=== PATIENT | male | born 1985 | race Caucasian/White ===

== ENCOUNTER 2017-10-20 13:34 | Emergency (ER) | payer SELFPAY ==
[2017-10-20 13:44] VITALS: BP 156/109
--- NOTE | 2017-10-20 14:27 | UC ---
Ginette Summers Simon, scribed for Kelvin Salazar MD on 10/20/17 at 1412 . Skin Complaint HPI - HPI Summary HPI Summary: This patient is a 32 year old M presenting [place] [facility] [place] a chief complaint of itchy rash on fingers and toes for past couple months. He endorses symptoms have worsened in past couple of days. - History of Current Complaint Chief Complaint: UCSkin Time Seen by Provider: 10/20/17 14:03 Stated Complaint: RASH Hx Obtained From: Patient Onset/Duration: Gradual Onset, Lasting Weeks, Still Present, Worse Since - 2 or 3 days ago Skin Exposure Onset/Duration: Weeks Ago Timing: Constant Onset Severity: Mild Current Severity: Mild Pain Intensity: 1 Pain Scale Used: 0-10 Numeric Location: Hand (Right), Hand (Left), Foot (Right), Foot (Left) Character: Pruritus, Redness, Raised Aggravating Factor(s): Nothing Alleviating Factor(s): Nothing Associated Signs & Symptoms: Positive: Rash - Allergy/Home Medications Allergies/Adverse Reactions: Allergies Allergy/AdvReac Type Severity Reaction Status Date / Time Seasonal/Environmental Allergy Intermediate Congestion Uncoded 10/20/17 13:44 Review of Systems Skin: Rash, Other - pruritis All Other Systems Reviewed And Are Negative: Yes PMH/Surg Hx/FS Hx/Imm Hx Cardiovascular History: Hypertension Respiratory History: Asthma GI/ History: Other Other GI/ History: Inguinal hernia - Surgical History Surgical History: Yes Surgery Procedure, Year, and Place: inguinal hernia repair - Family History Known Family History: Positive: None - Social History Alcohol Use: Rare Substance Use Type: Marijuana Smoking Status (MU): Current Some Day Smoker Type: Cigarettes Amount Used/How Often: 3-4 cigs/day Length of Time of Smoking/Using Tobacco: 3 years Have You Smoked in the Last Year: Yes Physical Exam - Summary Physical Exam Summary: VITAL SIGNS: Reviewed. GENERAL: Patient is a well-developed and nourished male who is lying comfortable in the stretcher. Patient is not in any acute respiratory distress. HEAD AND FACE: Normocephalic EYES: PERRLA, EOMI x 2. EARS: Hearing grossly intact. MOUTH: Oropharynx within normal limits. NECK: Supple, trachea is midline, no adenopathy, no JVD, no carotid bruit. CHEST: Symmetric, no tenderness at palpation LUNGS: Clear to auscultation bilaterally. No wheezing or crackles. CVS: Regular rate and rhythm, S1 and S2 present, no murmurs or gallops appreciated. ABDOMEN: Soft, non-tender. Bowel sounds are normal. No abdominal abnormal pulsations. EXTREMITIES: Full ROM in all major joints, no edema, no cyanosis or clubbing. NEURO: Alert and oriented x 3. No acute neurological deficits. Speech is normal and follows commands. SKIN: Dry and warm, maculopapular rash in between fingers and toes. Triage Information Reviewed: Yes Vital Signs: Initial Vital Signs Temp 98.1 F 10/20/17 13:41 Pulse 74 10/20/17 13:41 Resp 16 10/20/17 13:41 BP 156/109 10/20/17 13:41 Pulse Ox 100 10/20/17 13:41 Vital Signs Reviewed: Yes Course/Dx - Course Course Of Treatment: Patient with eczema and tinea pedis. The patient was given a prescription for Kenalog and also Ketoconazole. She has history of hypertension therefore the patient was given a prescription for metoprolol since he ran out of this medication. Patient is given a medically stable alert and oriented 3. - Diagnoses Provider Diagnoses: Dihydrotic eczema. Tinea Pedis. Discharge - Sign-Out/Discharge Documenting (check all that apply): Discharge/Admit/Transfer - Discharge Plan Condition: Stable Disposition: HOME Prescriptions: Ketoconazole 2 % CREAM (NF) [Nizoral 2% CREAM (NF)] 1 applic TOPICAL BID #60 gm Metoprolol Tartrate TAB* [Lopressor TAB*] 25 mg PO DAILY #30 tab Triamcinolone 0.1% CREAM(NF) [Kenalog Cream 0.1%(NF)] 1 applic TOPICAL BID #60 gm Patient Education Materials: Athlete's Foot (ED), Dyshidrotic Eczema (ED) Referrals: Rome Mullen MD [Primary Care Provider] - Additional Instructions: Take medications as instructed Increase your fluid intake Return to the if symptoms worsen - Billing Disposition and Condition Condition: STABLE Disposition: Home The documentation as recorded by the Ginette mendoza Simon accurately reflects the service I personally performed and the decisions made by , Kelvin Salazar MD.
== END 2017-10-20 14:24 | disposition home or self-care (01) ==
LOC: UCEAST 13:34
DX: L30.1 Dyshidrosis [pompholyx] (principal); B35.3 Tinea pedis; F17.210 Nicotine dependence, cigarettes, uncomplicated; I10 Essential (primary) hypertension; J45.909 Unspecified asthma, uncomplicated; Z91.09 Other allergy status, other than to drugs and biological substances
CPT/HCPCS: 99212; G0463

== ENCOUNTER 2018-01-02 13:20 | Emergency (ER) | payer SELFPAY ==
[2018-01-02 13:44] VITALS: BP 147/103
--- NOTE | 2018-01-02 14:10 | UC ---
Hypertension HPI - HPI Summary HPI Summary: This patient is a 32 year old M presenting to [facility] [place] requesting a metoprolol, he has been out for 3 days. Pt just set up a new PCP and his appointment isnt for the next 2 weeks. . Pt states he got a 30 day supply in october of this year and has not been taking them consistently. He states his PCP prescribed it in the past and that this med has worked well for him. The patient rates the pain 0/10 in severity. Pt denies cp, sob, abd pain. No n/v. No vision changes, lightheadedness. Pt states has some fatigue but able to work NKDA Patients medications reviewed this visit. - History of Current Complaint Chief Complaint: UCMedRefill Stated Complaint: MED REFILL Time Seen by Provider: 01/02/18 13:41 Hx Obtained From: Patient, Medical Records, Other: - previous PCP - [facility] medicine Onset/Duration: Lasting Days, Still Present Timing: Constant Associated Signs And Symptoms: Positive: Negative - fever CP - Allergies/Home Medications Allergies/Adverse Reactions: Allergies Allergy/AdvReac Type Severity Reaction Status Date / Time Seasonal/Environmental Allergy Intermediate Congestion Uncoded 01/02/18 13:45 PMH/Surg Hx/FS Hx/Imm Hx Previously Healthy: Yes Cardiovascular History: Hypertension Respiratory History: Asthma - Surgical History Surgical History: Yes Surgery Procedure, Year, and Place: inguinal hernia repair - Family History Known Family History: Positive: Hypertension Negative: Seizure Disorder - Social History Occupation: Employed Full-time - [employer] Alcohol Use: Occasionally Substance Use Type: Marijuana Smoking Status (MU): Current Some Day Smoker Type: Cigarettes Amount Used/How Often: 3-4 cigs/day Length of Time of Smoking/Using Tobacco: 3 years Have You Smoked in the Last Year: Yes - Immunization History Most Recent Tetanus Shot: UNK Review of Systems Constitutional: Fatigue Cardiovascular: Other - HTN Musculoskeletal: Arthralgia, Myalgia Neurological: Headache, Other - light headedness All Other Systems Reviewed And Are Negative: Yes Physical Exam - Summary Physical Exam Summary: Vital Signs Reviewed: Yes A+Ox3, no distress Eyes: Conjunctiva Clear, JODY. EOM intact and full ENT: Hearing grossly normal TM x 2 clear, mmoist, uvula midline, no exudate, no erythema Neck: Positive: Supple Respiratory: Positive: No respiratory distress, No accessory muscle use + CTA throughout no w/r Cardiovascular: RRR nl s1, s2 no m/r CBT <2 sec abd soft + BS nt/nd no guarding, no distension Musculoskeletal Exam: CHATMAN x 4 without difficulty Strength Intact, ROM Intact Neurological: Positive: Alert, + sensation throughout Psychological: Positive: Normal Response To Family Skin: Positive: no rash, no ecchymosis Triage Information Reviewed: Yes Vital Signs: Initial Vital Signs Temp 96.7 F 01/02/18 13:39 Pulse 80 01/02/18 13:39 Resp 18 01/02/18 13:39 BP 147/103 01/02/18 13:39 Pulse Ox 97 01/02/18 13:39 Hypertension Course/Dx - Course Course Of Treatment: Blood pressure noted and patient informed to follow up with PCP - has appt in 2 weeks. Pt here for refill of BP meds. Pt was previously Rx Metoprolol 50mg ER from family - pt doesn't have insurance for med - not on urgent RX. spoke with pharmacist at [facility] [place] Okay to Rx 25mg BID Metoprolol tartrate - available $4 [facility]. pt comfortable with plan. Will Rx 1 month supply. f/u with PCP - Differential Dx/Diagnosis Provider Diagnoses: medication refill. htn Discharge - Sign-Out/Discharge Documenting (check all that apply): Patient Departure All imaging exams completed and their final reports reviewed: No Studies - Discharge Plan Condition: Stable Disposition: HOME Prescriptions: Metoprolol Tartrate TAB* [Lopressor TAB*] 25 mg PO BID #60 tab Patient Education Materials: Hypertension (ED), Medicine Refill (ED) Referrals: No Primary Care Phys,NOPCP [Primary Care Provider] - Additional Instructions: - Take your medications EXACTLY as prescribed - stay well hydrated - drink plenty of non-alcoholic, non-caffinated beverages - Keep your appointment with your new primary doctor at [place] as scheduled next week - Contact your doctor or return with questions or concerns - Billing Disposition and Condition Condition: STABLE Disposition: Home - Attestation Statements Document Initiated by Scribe: Yes Documenting Scribe: Patrick Salinas Provider For Whom Scribe is Documenting (Include Credential): Dionne Long MD Scribe Attestation: Patrick Summers , scribed for Dionne Long MD on 01/02/18 at 2009. Scribe Documentation Reviewed: Yes Provider Attestation: The documentation as recorded by the Patrick mendoza accurately reflects the service I personally performed and the decisions made by me, Dionne Long MD
== END 2018-01-02 14:37 | disposition home or self-care (01) ==
LOC: UCEAST 13:20
DX: I10 Essential (primary) hypertension (principal); F17.210 Nicotine dependence, cigarettes, uncomplicated
CPT/HCPCS: 99212; G0463

== ENCOUNTER 2018-02-23 09:01 | Emergency (ER) | payer SELFPAY ==
[2018-02-23 09:08] VITALS: BP 159/115
[2018-02-23] MEDS ORDERED: Ibuprofen TAB* 600 MG PO ONE (10:08)
--- NOTE | 2018-02-23 10:35 | UC ---
Throat Pain/Nasal Vini HPI - HPI Summary HPI Summary: 32 y/o male presents to the urgent care c/o right ear pain and pressure alomg with uri sx x 2 weeks - History of Current Complaint Chief Complaint: UCEar Stated Complaint: SINUS COMPLAINT Time Seen by Provider: 02/23/18 10:10 Hx Obtained From: Patient Pain Intensity: 7 - Allergies/Home Medications Allergies/Adverse Reactions: Allergies Allergy/AdvReac Type Severity Reaction Status Date / Time Seasonal/Environmental Allergy Intermediate Congestion Uncoded 02/23/18 09:08 Home Medications: Home Medications Venlafaxine TAB (NF) [Effexor TAB (NF)] 25 mg PO DAILY 02/23/18 [History Confirmed 02/23/18] PMH/Surg Hx/FS Hx/Imm Hx - Surgical History Surgical History: Yes Surgery Procedure, Year, and Place: inguinal hernia repair - Family History Known Family History: Positive: Hypertension Negative: Seizure Disorder - Social History Alcohol Use: Occasionally Substance Use Type: Marijuana Smoking Status (MU): Current Some Day Smoker Type: Cigarettes Amount Used/How Often: 3-4 cigs/day Length of Time of Smoking/Using Tobacco: 3 years Have You Smoked in the Last Year: Yes - Immunization History Most Recent Tetanus Shot: UNK Physical Exam Vital Signs: Initial Vital Signs Temp 98.3 F 02/23/18 09:05 Pulse 94 02/23/18 09:05 Resp 16 02/23/18 09:05 BP 159/115 02/23/18 09:05 Pulse Ox 100 02/23/18 09:05 Throat Pain/Nasal Course/Dx - Differential Dx/Diagnosis Differential Diagnosis/HQI/PQRI: Influenza, Laryngitis, Mononucleosis, Otitis Media, Pharyngitis, Sinusitis, Tonsillitis, URI, Other Provider Diagnoses: 1- Acute bacterial sinusitis. 2- Rt acute otitis externa. 3- Uncontrolled HTN Discharge - Sign-Out/Discharge Documenting (check all that apply): Patient Departure - D/c home All imaging exams completed and their final reports reviewed: No Studies - Discharge Plan Condition: Stable Disposition: HOME Prescriptions: Amoxicillin/Clavulanate TAB* [Augmentin TAB 875*] 875 mg PO BID #20 tab Fluticasone NASAL SPRAY 50MCG* [Flonase NASAL SPRAY 50MCG*] 2 spray BOTH NARES DAILY #1 btl Neomyc/Polym/HC 1% OTIC SUSP* [Cortisporin Otic Susp 1%*] 4 drop RIGHT EAR TID # 1 btl Patient Education Materials: Sinusitis (ED), Low-Sodium Diet (ED) Referrals: [facility] [place] [facility]FERRAL [Outside] - 3 Days Additional Instructions: 1- Please increase fluid intake and rest. take full course of antibiotic to avoid resistance 2-Use Flonase as directed to help drain fluid. Also buy saline drops to clear sinuses 3-Apply Cortisporin otic drops as directed to alleviate Rt otitis externa 4-Your BP is elevated today. Please go home and immediately take your BP medication. please decrease salt in your diet, monitor BP and if it continues to be elevated please f/u with your PCP for further management. If BP do not decrease after taking your BP medication and you develop headache and dizziness , please go immediately to the ER for further management. 5-Return to the clinic or PCP in 3 days if symptoms do not improve for further management and treatment - Billing Disposition and Condition Condition: STABLE Disposition: Home
== END 2018-02-23 10:51 | disposition home or self-care (01) ==
LOC: UCEAST 09:01
DX: J01.90 Acute sinusitis, unspecified (principal); B96.89 Other specified bacterial agents as the cause of diseases classified elsewhere; H60.501 Unspecified acute noninfective otitis externa, right ear; I10 Essential (primary) hypertension; F17.210 Nicotine dependence, cigarettes, uncomplicated; Z91.048 Other nonmedicinal substance allergy status
CPT/HCPCS: 99212; A9270-GY; G0463

== ENCOUNTER 2018-12-24 16:15 | Emergency (ER) | payer SELFPAY ==
[2018-12-24 16:32] VITALS: BP 146/92
--- NOTE | 2018-12-24 16:36 | UC ---
Abdominal Pain Male HPI - HPI Summary HPI Summary: 33 yo male presents with LLQ pain. He tells me that 2 days ago he developed mild intermittent LLQ pain that he describes as achy. Yesterday was a bit worse and today has been more constant and sharp in nature. He is eating and drinking well. No change in bowel habits. Denies fever, chills, n/v/d/c, dysuria, hematuria, back or flank pain. No hx of diverticulitis. He does have a history of kidney stones and states this pain feels similar. - History of Current Complaint Chief Complaint: UCAbdominalPain Stated Complaint: ABDOMINAL PAIN Time Seen by Provider: 12/24/18 16:35 Hx Obtained From: Patient Onset/Duration: Gradual Onset Severity Initially: Mild Severity Currently: Moderate Pain Intensity: 5 Pain Scale Used: 0-10 Numeric - Allergies/Home Medications Allergies/Adverse Reactions: Allergies Allergy/AdvReac Type Severity Reaction Status Date / Time Seasonal/Environmental Allergy Intermediate Congestion Uncoded 12/24/18 16:32 PMH/Surg Hx/FS Hx/Imm Hx Cardiovascular History: Hypertension Psychological History: Anxiety, Depression - Surgical History Surgical History: Yes Surgery Procedure, Year, and Place: inguinal hernia repair - Family History Known Family History: Positive: Hypertension Negative: Seizure Disorder - Social History Occupation: Employed Full-time Lives: With Family Alcohol Use: Occasionally Substance Use Type: Marijuana Substance Use Comment - Amount & Last Used: 3 times a weeks Smoking Status (MU): Current Some Day Smoker Type: Cigarettes Amount Used/How Often: 3-4 cigs/day Length of Time of Smoking/Using Tobacco: 3 years Have You Smoked in the Last Year: Yes - Immunization History Most Recent Tetanus Shot: UNK Review of Systems All Other Systems Reviewed And Are Negative: No Constitutional: Positive: Negative Skin: Positive: Negative Respiratory: Positive: Negative Cardiovascular: Positive: Negative Gastrointestinal: Positive: Abdominal Pain Genitourinary: Positive: Negative Neurological: Positive: Negative Psychological: Positive: Negative Physical Exam - Summary Physical Exam Summary: GENERAL: NAD. WDWN. No pain distress. SKIN: No rashes, sores, lesions, or open wounds. NECK: Supple. Nontender. No lymphadenopathy. CHEST: CTAB. No r/r/w. No accessory muscle use. Breathing comfortably and in no distress. CV: RRR. Without m/r/g. Pulses intact. Cap refill <2seconds ABDOMEN: Mild LLQ TTP. Soft. No rebound. No distention or guarding. No CVA tenderness. Bowel sounds present NEURO: Alert. PSYCH: Age appropriate behavior. Triage Information Reviewed: Yes Vital Signs: Initial Vital Signs Temp 98.4 F 12/24/18 16:28 Pulse 87 12/24/18 16:28 Resp 18 12/24/18 16:28 BP 146/92 12/24/18 16:28 Pulse Ox 98 12/24/18 16:28 Laboratory Tests 12/24/18 17:13 POC Urine Color Yellow POC Urine Clarity Clear POC Urine pH 6.0 POC Ur Specif Hanna >= 1.030 POC Urine Protein 1+ A POC Ur Glucose (UA) Negative POC Urine Ketones Negative POC Urine Blood Negative POC Urine Nitrite Negative POC Urine Bilirubin Negative POC Urine Urobilinogen 0.2 POC U Leukocyte Esteras Negative Vital Signs Reviewed: Yes Diagnostics - Radiology CT ab/pelv Radiology Interpretation Completed By: Radiologist Summary of Radiographic Findings: IMPRESSION: #. The constellation of findings favors appendagitis epiploica at the junction of the descending and sigmoid segments. Interval follow-up suggested to assess for resolution of the inflammatory change. #. Normal appendix documented. #. 0.7 cm stone upper pole RIGHT kidney. Abd Pain Male Course/Dx - Course Course Of Treatment: Exam, vitals, and clinical history correlate well with epiploic appendagitis. Discussed this with pt. Advised to continue ibuprofen/tylenol and as directed for discomfort. If he develops a fever, vomiting, diarrhea, dysuria, or worsening pain to go to the ER. Recommend f/u with PCP within 1 month for recheck. - Differential Dx/Clinical Impression Provider Diagnosis: LLQ abdominal pain, Epiploic appendagitis Discharge ED - Sign-Out/Discharge Documenting (check all that apply): Patient Departure All imaging exams completed and their final reports reviewed: Yes - Discharge Plan Condition: Stable Disposition: HOME Referrals: Berhane Eckert MD [Primary Care Provider] - Additional Instructions: Your blood pressure was high at todays visit. Please see your primary provider within 4 weeks for recheck and re-evaluation. Please take tylenol or ibuprofen as directed for discomfort. Your pain should subside within 1 week. If you develop a fever, vomiting, worsening pain, or new symptoms - please be rechecked immediately. I recommend that you schedule a follow up with your PCP within 1 month for a recheck of the scan to make sure things have healed well - Billing Disposition and Condition Condition: STABLE Disposition: Home
== END 2018-12-24 17:48 | disposition home or self-care (01) ==
LOC: UCEAST 16:15
DX: R10.32 Left lower quadrant pain (principal); K63.89 Other specified diseases of intestine; I10 Essential (primary) hypertension; F41.9 Anxiety disorder, unspecified; F32.9 Major depressive disorder, single episode, unspecified; F17.210 Nicotine dependence, cigarettes, uncomplicated
CPT/HCPCS: 74176; 81003; 99211; G0463